=== PATIENT | female | born 1935 | race Caucasian/White ===

== ENCOUNTER 2020-09-12 14:39 | Outpatient (CLI) | payer MEDICARE, BC ==
--- NOTE | 2020-09-12 18:20 | RAD ---
TWO VIEW CHEST: 09/12/20 HISTORY: Dyspnea. COMPARISON: 11/29/19. Hyperexpansion suggests COPD. Increased interstitial markings appears stable from prior exam. No foca l infiltrate or vascular congestion. Heart size is normal. Degenerative spine changes. IMPRESSION: Chronic interstitial changes. POS: [facility]
== END 2020-09-12 14:40 | disposition home or self-care (01) ==
LOC: BICRAD 14:39
PROVIDERS: ATTEND Internal Medicine Pulmonary Disease
DX: R06.00 Dyspnea, unspecified (principal)
CPT/HCPCS: 71046